=== PATIENT | female | born 1980 | race African-American/Black ===

== ENCOUNTER 2022-04-07 20:01 | Emergency (ER) | payer OTHER ==
[2022-04-07 20:19] VITALS: BP 145/82; PULSE 79; RESP 17; TEMP 98.9; BMI 38.2
[2022-04-07] MEDS ORDERED: CEPHALEXIN MONOHYDRATE 250 MG CAPSULE (FP) PO ONE (20:42)
[2022-04-07] MEDS ORDERED: CEPHALEXIN MONOHYDRATE 250 MG CAPSULE (FP) ONE (20:43)
[2022-04-07 22:16] LABS: EPITHELIAL CELLS MANY /hpf
== END 2022-04-07 20:50 | disposition home or self-care (01) ==
LOC: FER 20:01
DX: R35.0 Frequency of micturition (principal)
CPT/HCPCS: 81003; 81015; 84703; 87077; 87086; 87186; 99283-25

== ENCOUNTER 2022-08-15 00:13 | Emergency (ER) | payer OTHER ==
[2022-08-15 00:21] VITALS: BP 147/84; PULSE 100; RESP 17; TEMP 98.8; BMI 45.7
== END 2022-08-15 01:59 | disposition home or self-care (01) ==
LOC: JER 00:13
DX: J06.9 Acute upper respiratory infection, unspecified (principal); R05.1 Acute cough
CPT/HCPCS: 0241U-QW; 71046-TC-FY; 99284-25

== ENCOUNTER 2024-03-24 20:25 | Emergency (ER) | payer OTHER ==
[2024-03-24 20:34] VITALS: BP 141/85; PULSE 81; RESP 18; TEMP 99.1; BMI 40.8
[2024-03-24 21:58] LABS: EPI CELLS 22 /uL (0-25.1); HYALINE CASTS 4 /uL (0-3.1); PH,URINE 5.5 (5.0-8.0); URINE APPEARANCE CLEAR; URINE BACTERIA 1746 /uL (0-1359); URINE BILIRUBIN NEGATIVE (NEGATIVE); URINE COLOR YELLOW; URINE GLUCOSE (UA) NEGATIVE (NEGATIVE); URINE KETONE NEGATIVE (NEGATIVE); URINE LEUK ESTERASE 3+ (NEGATIVE); URINE NITRITE NEGATIVE (NEGATIVE); URINE PROTEIN NEGATIVE (NEGATIVE); URINE RBC 12 /uL (0-23.9); URINE UROBILINOGEN 0.2 mg/dL (0.2-1.0); URINE WBC 499 /uL (0-25.8)
[2024-03-24 22:25] LABS: HCG,QUALITATIVE URINE Negative
[2024-03-24] MEDS ORDERED: CEPHALEXIN MONOHYDRATE 500 MG CAPSULE (UD) ONE (23:26)
[2024-03-24] MEDS: CEPHALEXIN MONOHYDRATE 500 MG CAPSULE (UD) PO ONE (23:33)
== END 2024-03-24 23:33 | disposition home or self-care (01) ==
LOC: JER 20:25
DX: N39.0 Urinary tract infection, site not specified (principal); R10.30 Lower abdominal pain, unspecified
CPT/HCPCS: 76830-TC; 81003; 84703; 87086; 87186; 99284-25